=== PATIENT | male | born 1970 | race Caucasian/White ===

== ENCOUNTER 2017-06-12 12:40 | Emergency (ER) | payer OTHER, SELFPAY ==
[2017-06-12 13:13] VITALS: BP 152/90; PULSE 66; RESP 20; O2SAT 95; BMI 36.9
[2017-06-12 13:18] LABS: UTC Influenza A Antigen Positive (Negative); UTC Influenza B Antigen Negative (Negative)
--- NOTE | 2017-06-12 13:40 | HMH.EDUTC ---
[facility] [place] Clinical Impression: Influenza Disposition: Home, Self-Care Condition on Discharge: Good Instructions: Influenza Additional Instructions: ? Start Tamiflu today if you are going to take it. Discussed risk and possible benefits. ? ? Lots of rest ? Increase Fluids water, Gatorade, powerade, pedialyte,if infant/toddler/child ? Alternate Tylenol and / or ibuprofen as discussed for fever, aches, chills x 24 hours without medication for symptoms ? Follow up IMMEDIATELY for new or worsening Symptoms OR no noticeable improvement over the next 48-72 hours, 911 for difficulty or breathing ? You or your child area contagious until no fever, aches, chills for 24 hours with medication for symptoms Prescriptions: Dextromethorphan Polistirex [Delsym] 10 ml PO Q12RT #200 [email or web address] Oseltamivir Phosphate [Tamiflu 75mg Capsule] 75 mg PO BID #10 capsule Forms: Work/School Release Time of Disposition: 13:48 Medical Decision Making Vital Signs: 06/12/17 13:13 Pulse Rate [Right] 66 Respiratory Rate 20 Blood Pressure [Right Arm] 152/90 Blood Pressure Mean [Right Arm] 110 Blood Pressure Source [Right Arm] Automatic Cuff Blood Pressure Position [Right Arm] Sitting 02 Sat by Pulse Oximetry 95 Oxygen Delivery Method Room Air - Lab Data Lab Results 06/12/17 13:17: Influenza Type A Ag Positive A, Influenza Type B Ag Negative - Michael Inquiry Pt receiving controlled substance: No Michael was queried for this patient: No [facility] [place] - General Stated complaint: [place] congestion cough Mode of Arrival: Ambulatory Source of Information: Patient Limitations: No Limitations Description of Symptoms (Recalled from Triage Doc. by RN): COUGH, CONGESTION, FEVER HEENT Symptoms (Recalled from RN notes): Yes Resp Symptoms (Recalled from RN notes): No Skin Symptoms (Recalled from RN notes): No MS Symptoms (Recalled from RN notes): No Functional Status (Recalled from RN notes): N - History of Present Illness Provider Complaint: Patient state that he has not felt well for several days States that yesterday he felt worse and began feeling like he was running a fever. State that he has been having body aches, cough, runny nose and sneezing and today he felt worse so he came in to get checked out - Related Data Home Medications Medication Instructions Recorded Confirmed Atenolol [Atenolol 25mg Tab] 25 mg PO DAILY 06/12/17 06/12/17 Previous Rx's Medication Instructions Recorded Dextromethorphan Polistirex 10 ml PO Q12RT #200 [email or web address] 06/12/17 [Delsym] Oseltamivir Phosphate [Tamiflu 75 mg PO BID #10 cap 06/12/17 75mg Capsule] Allergies Allergy/AdvReac Type Severity Reaction Status Date / Time amoxicillin [AMOXICILLIN] Allergy Unknown Verified 06/12/17 13:19 mustard [MUSTARD] Allergy Unknown Unverified 05/22/17 14:12 Penicillins [PENICILLINS] Allergy Unknown Verified 06/12/17 13:18 - Worker's Comp Is this a Worker's Comp case?: No [facility] History I have reviewed the patient's past medical history: Yes - *Social History Smoking Status: Current every day smoker Tobacco Type: cigarettes Alcohol Intake: never - Psychiatric History Expresses thoughts of harming self/others: None Suicide Plan Description: No Plan ROS Obtained: Yes All systems reviewed & no additional complaints Physical Exam - General General appearance: alert, in no apparent distress - ENT ENT exam: Present: other (Throat red, irritated clear drainage from nose) - Respiratory Respiratory exam: Present: normal lung sounds bilaterally. Absent: respiratory distress - Cardiovascular Cardiovascular exam: Present: regular rate, normal rhythm. Absent: JVD - Neurological Exam Neurological exam: Present: alert, oriented X3
--- NOTE | 2017-06-12 13:45 | ED_ITS ---
[facility] [place] Disposition Clinical Impression: Influenza Disposition: Home, Self-Care Condition on Discharge: Good Instructions: Influenza Additional Instructions: ? Start Tamiflu today if you are going to take it. Discussed risk and possible benefits. ? ? Lots of rest ? Increase Fluids water, Gatorade, powerade, pedialyte,if infant/toddler/child ? Alternate Tylenol and / or ibuprofen as discussed for fever, aches, chills x 24 hours without medication for symptoms ? Follow up IMMEDIATELY for new or worsening Symptoms OR no noticeable improvement over the next 48-72 hours, 911 for difficulty or breathing ? You or your child area contagious until no fever, aches, chills for 24 hours with medication for symptoms Prescriptions: Dextromethorphan Polistirex [Delsym] 10 ml PO Q12RT #200 [email or web address] Oseltamivir Phosphate [Tamiflu 75mg Capsule] 75 mg PO BID #10 capsule Forms: Work/School Release Time of Disposition: 13:48 Medical Decision Making Vital Signs: 06/12/17 13:13 Pulse Rate [Right] 66 Respiratory Rate 20 Blood Pressure [Right Arm] 152/90 Blood Pressure Mean [Right Arm] 110 Blood Pressure Source [Right Arm] Automatic Cuff Blood Pressure Position [Right Arm] Sitting 02 Sat by Pulse Oximetry 95 Oxygen Delivery Method Room Air - Lab Data Lab Results 06/12/17 13:17: Influenza Type A Ag Positive A, Influenza Type B Ag Negative - Michael Inquiry Pt receiving controlled substance: No Michael was queried for this patient: No [facility] [place] HPI - General Stated complaint: [place] congestion cough Mode of Arrival: Ambulatory Source of Information: Patient Limitations: No Limitations Description of Symptoms (Recalled from Triage Doc. by RN): COUGH, CONGESTION, FEVER HEENT Symptoms (Recalled from RN notes): Yes Resp Symptoms (Recalled from RN notes): No Skin Symptoms (Recalled from RN notes): No MS Symptoms (Recalled from RN notes): No Functional Status (Recalled from RN notes): N - History of Present Illness Provider Complaint: Patient state that he has not felt well for several days States that yesterday he felt worse and began feeling like he was running a fever. State that he has been having body aches, cough, runny nose and sneezing and today he felt worse so he came in to get checked out - Related Data Home Medications Medication Instructions Recorded Confirmed Atenolol [Atenolol 25mg Tab] 25 mg PO DAILY 06/12/17 06/12/17 Previous Rx's Medication Instructions Recorded Dextromethorphan Polistirex 10 ml PO Q12RT #200 [email or web address] 06/12/17 [Delsym] Oseltamivir Phosphate [Tamiflu 75 mg PO BID #10 cap 06/12/17 75mg Capsule] Allergies Allergy/AdvReac Type Severity Reaction Status Date / Time amoxicillin [AMOXICILLIN] Allergy Unknown Verified 06/12/17 13:19 mustard [MUSTARD] Allergy Unknown Unverified 05/22/17 14:12 Penicillins [PENICILLINS] Allergy Unknown Verified 06/12/17 13:18 - Worker's Comp Is this a Worker's Comp case?: No [facility] History I have reviewed the patient's past medical history: Yes - *Social History Smoking Status: Current every day smoker Tobacco Type: cigarettes Alcohol Intake: never - Psychiatric History Expresses thoughts of harming self/others: None Suicide Plan Description: No Plan ROS Obtained: Yes All systems reviewed & no add
== END 2017-06-12 13:54 | disposition home or self-care (01) ==
PROVIDERS: Emergency Provider Nurse Practitioner
DX: J11.1 Influenza due to unidentified influenza virus with other respiratory manifestations (principal); F17.210 Nicotine dependence, cigarettes, uncomplicated; Z79.899 Other long term (current) drug therapy
CPT/HCPCS: 87804; 99202